=== PATIENT | female | born 1975 | race Caucasian/White ===

== ENCOUNTER 2018-08-01 09:44 | Emergency (ER) | payer SELFPAY ==
[~2018-08-01] VITALS: Ht 157.5 cm; Wt 98.0 kg
[~2018-08-01 09:44] MED LIST: DIPH25CA6 PO; FAMO20TA18 PO; PRED20TA PO
[2018-08-01 09:46] VITALS: Ht 157.5 cm; Wt 98.0 kg
[2018-08-01] MEDS ORDERED: SOD CHLORIDE 0.9% 1,000 ML IV STA (12:55)
[2018-08-01] MEDS ORDERED: ONDANSETRON 4 MG INJ IV STA (12:55)
--- NOTE | 2018-08-01 13:14 | ERD ---
ER Documentation Chief Complaint Chief Complaint pt bib family with c/o chest pain for a few days with nausea, slight cough HPI 43-year-old woman complains of 3 days of sharp nonexertional nonradiating chest pain and palpitations. She said some nausea but no vomiting, no shortness of breath, no calf or leg swelling, no rash, no trauma, no headache or blurry vision. Patient denied abdominal pain as well. ROS All systems reviewed and are negative except as per history of present illness. Medications Home Meds Active Scripts Ibuprofen* (Motrin*) 600 Mg Tab, 600 MG PO Q8 PRN for PAIN AND/OR INFLAMMATION, #30 TAB Prov:REVA VACA MD 08/01/18 Discontinued Scripts Prednisone (Prednisone) 20 Mg Tab, 40 MG PO DAILY for 4 Days, #4 TAB Prov:LETTY WEIR MD 03/08/17 Famotidine* (Famotidine*) 20 Mg Tablet, 20 MG PO BID for 4 Days, #8 TAB Prov:LETTY WEIR MD 03/08/17 Diphenhydramine Hcl (Benadryl) 25 Mg Cap, 25 MG PO QID for swelling and itching for 4 Days, #16 CAP 0 Refills Prov:LETTY WEIR MD 03/08/17 Allergies Allergies: Coded Allergies: No Known Allergy (Unverified , 03/08/17) PMhx/Soc Obesity Hx Alcohol Use: No Hx Substance Use: No Hx Tobacco Use: No FmHx Family History: No diabetes Physical Exam Vitals Vital Signs Date Temp Pulse Resp B/P (MAP) Pulse Ox O2 O2 Flow FiO2 Time Delivery Rate 08/01/18 97.8 88 18 142/92 Room Air 14:48 (109) 08/01/18 94 22 153/91 100 Room Air 13:55 (111) 08/01/18 98.3 119 16 139/94 98 09:46 (109) Physical Exam Const: Appears anxious, afebrile Head: Atraumatic Eyes: Normal Conjunctiva ENT: Normal External Ears, Nose and Mouth. Neck: Full range of motion. No meningismus. Resp: Clear to auscultation bilaterally Cardio: Regular rate and rhythm, no murmurs Abd: Soft, non tender, non distended. Skin: No petechiae or rashes Back: No midline or flank tenderness Ext: No cyanosis, or edema Neur: Awake and alert x3, no focal deficits or facial asymmetry Psych: Appears anxious Result Diagram: 08/01/18 1312 08/01/18 1311 Results 24 hrs Laboratory Tests Test 08/01/18 13:11 08/01/18 13:12 08/01/18 13:20 Sodium Level 140 mmol/L Potassium Level 3.6 mmol/L Chloride Level 103 mmol/L Carbon Dioxide Level 21 mmol/L Anion Gap 16 Blood Urea Nitrogen 7 mg/dl Creatinine 0.46 mg/dl Est Glomerular Filtrat > 60 mL/min Rate mL/min Glucose Level 90 mg/dl Calcium Level 9.2 mg/dl Total Bilirubin 0.1 mg/dl Direct Bilirubin 0.00 mg/dl Indirect Bilirubin 0.1 mg/dl Aspartate Amino 83 IU/L Transf (AST/SGOT) Alanine 47 IU/L Aminotransferase (ALT/SGPT) Alkaline Phosphatase 130 IU/L Troponin I < 0.012 ng/ml Total Protein 8.9 g/dl Albumin 4.8 g/dl Globulin 4.10 g/dl Albumin/Globulin Ratio 1.17 Lipase 138 U/L White Blood Count 9.1 10^3/ul Red Blood Count 5.17 10^6/ul Hemoglobin 13.5 g/dl Hematocrit 41.9 % Mean Corpuscular Volume 81.0 fl Mean Corpuscular Hemoglobin 26.1 pg Mean Corpuscular 32.2 g/dl Hemoglobin Concent Red Cell Distribution Width 14.8 % Platelet Count 411 10^3/UL Mean Platelet Volume 9.7 fl Immature Granulocytes % 0.100 % Neutrophils % 49.6 % Lymphocytes % 43.5 % Monocytes % 4.7 % Eosinophils % 1.2 % Basophils % 0.9 % Nucleated Red Blood Cells % 0.0 /100WBC Immature Granulocytes # 0.010 10^3/ul Neutrophils # 4.5 10^3/ul Lymphocytes # 4.0 10^3/ul Monocytes # 0.4 10^3/ul Eosinophils # 0.1 10^3/ul Basophils # 0.1 10^3/ul Nucleated Red Blood Cells # 0.0 10^3/ul Urine Color STRAW Urine Clarity CLEAR Urine pH 5.0 Urine Specific Marcella 1.004 Urine Ketones NEGATIVE mg/dL Urine Nitrite NEGATIVE mg/dL Urine Bilirubin NEGATIVE mg/dL Urine Urobilinogen NEGATIVE mg/dL Urine Leukocyte Esterase NEGATIVE Massiel/ul Urine Microscopic RBC 0 /HPF Urine Microscopic WBC 0 /HPF Urine Hemoglobin 1+ mg/dL Urine Glucose NEGATIVE mg/dL Urine Total Protein NEGATIVE mg/dl Thyroid Stimulating 2.750 MIU/L Hormone (TSH) Free Thyroxine 1.03 ng/dl Free Triiodothyronine (T3) pg/mL 3.64 pg/ml POC Beta HCG, Qualitative NEGATIVE Current Medications Medications Dose Sig/Rehana Start Time Status Last (Trade) Ordered Route PRN Stop Time Admin Dose Reason Admin Sodium 1,000 ml @ Q1H STAT 08/01/18 DC 08/01/18 Chloride 1,000 mls/hr IV 12:55 13:53 08/01/18 13:54 Ondansetron 4 mg ONCE STAT 08/01/18 DC 08/01/18 HCl (Zofran IV 12:55 13:53 Inj) 08/01/18 12:58 Procedures/MDM IV line was established patient was placed on steel die engraver rhythm strip reve aled a sinus tachycardia at 120 bpm with upright P and T waves. Patient was afebrile EKG performed, read by me revealed a sinus tachycardia at 113 bpm, normal axis, narrow QRS complex, no concerning ST elevations or depressions noted I administered 1 L normal saline IV and Zofran 4 mg IV for palpitations. CBC and electrolytes were normal, liver function tests were normal, troponin was negative, urinalysis was negative for infection. Thyroid panel was normal. Chest X-ray 1V Interpreted by me: Soft Tissue: No acute abnormalities Bones: No acute abnormalities Mediastinum/Cardiac Silhouette/Lungs: No acute abnormalities Patient's tachycardia resolved and she is asymptomatic at this time, she has no complaints of palpitations or pain. Differential diagnoses considered, included but not limited to acute coronary syndrome, pulmonary embolism, aortic dissection, abdominal aortic aneurysm, sepsis, stroke, meningitis, encephalitis, pneumonia, appendicitis, cholecystit is, bowel obstruction, pyelonephritis, nephrolithiasis, cystitis, as well as metabolic, hematologic, and electrolyte abnormalities. As well as abscess, cellulitis, fractures, and dislocations. Patient feels much better at this time, and vital signs are normal, symptoms have improved. I did give strict instructions to return to the ED if symptoms continue or worsen, patient will otherwise follow-up with primary care physician. Patient understood instructions and agreed to plan. Disclaimer: Inadvertent spelling and grammatical errors are likely due to EHR/dictation software use and do not reflect on the overall quality of patient care. Also, please note that the electronic time recorded on this note does not necessarily reflect the actual time of the patient encounter. Departure Diagnosis: Primary Impression: Chest pain Chest pain type: unspecified Qualified Codes: R07.9 - Chest pain, unspecified Additional Impression: Palpitations Condition: Good REVA VACA MD Aug 01, 2018 13:14
[2018-08-01] MEDS ORDERED: IBUP-1542 PO (13:54)
[2018-08-01 14:48] VITALS: BP 142/92; PULSE 88; RESP 18
== END 2018-08-01 14:52 | disposition home or self-care (01) ==
LOC: E/R 09:44
DX: R07.9 Chest pain, unspecified (principal); R00.2 Palpitations
CPT/HCPCS: 71045; 80053; 81001; 81025; 83690; 84439; 84443; 84481; 84484; 85025; 93005; 96374; 99285; J2405; J7030

== ENCOUNTER 2019-04-01 03:17 | Emergency (ER) | payer MEDICAID ==
[~2019-04-01] VITALS: Ht 147.3 cm; Wt 83.5 kg
[~2019-04-01 03:17] MED LIST changes: -DIPH25CA6 PO; -FAMO20TA18 PO; +IBUP-1542 PO; +METO-319 PO; -PRED20TA PO
[2019-04-01 03:20] VITALS: Ht 147.3 cm; Wt 83.5 kg
[2019-04-01] MEDS ORDERED: LABETALOL HCL 20MG INJ IV ONE (04:30)
[2019-04-01] MEDS ORDERED: KETOROLAC 30 MG INJ IV STA (05:12)
[2019-04-01 06:30] VITALS: BP 154/78; PULSE 72; RESP 20
== END 2019-04-01 06:35 | disposition home or self-care (01) ==
LOC: E/R 03:17
DX: I16.0 Hypertensive urgency (principal); I10 Essential (primary) hypertension
CPT/HCPCS: 36415; 71045; 80048; 81025; 84484; 85025; 85378; 93005; 96374; 96375; J1885; Z7502; Z7610